=== PATIENT | male | born 1955 | race Caucasian/White ===

== ENCOUNTER → 2017-07-02 | Outpatient (CLI) | payer BC ==
--- NOTE | 2017-07-02 17:53 | DIREP ---
PROCEDURE: CT SPINE CERVICAL W/0 COMPARISON:None. INDICATIONS:INTERVERTEBRAL DISC DISORDER FINDINGS: ALIGNMENT:Normal. VERTEBRAE:Normal. PARASPINAL AREA:Normal. OTHER:No additional findings. CERVICAL DISC LEVELS C2-C3:2 mm anterior subluxation of C2 on C3. Moderate right facet arthropathy C3-C4:Severe narrowing. C4-C5:Normal. C5-C6:Severe narrowing with 1 mm posterior subluxation of C5 on C6. Calcified bulging annulus with mild central canal stenosis. C6-C7:Severe narrowing. C7-T1:Normal. CONCLUSION:No acute fracture. Calcified bulging annulus at C5-6 with mild central canal stenosis. Severe degenerative disc disease at C3-4 , C5-6 and C6-7 with 1 mm anterior subluxation of C5 on C6. Mild bilateral facet arthropathy throughout the cervical spine, most severe on the right at C2-3. Dictated by: Felipe Wolfe M.D. on 07/02/2017 at 05:43 PM
== END | disposition home or self-care (01) ==
LOC: CT 16:11
PROVIDERS: ATTEND Internal Medicine
DX: M50.322 Other cervical disc degeneration at C5-C6 level (principal); M50.323 Other cervical disc degeneration at C6-C7 level; M50.31 Other cervical disc degeneration, high cervical region
CPT/HCPCS: 72125